=== PATIENT | female | born 1990 | race Two or more races ===

== ENCOUNTER 2022-02-16 20:00 | Inpatient (IN) | payer BC ==
[2022-02-16 21:11] VITALS: BMI 31.1
[2022-02-16 22:06] LABS: BASO % 0.6 % (0-2.0); EOS % 0.8 % (0-4.5); HEMATOCRIT 33.7 % (32.4-45.2); HEMOGLOBIN 11.7 GM/dL (10.7-15.3); LYMPH % 25.7 % (8-40); MCH 35.2 pg (25.7-33.7); MCHC 34.8 g/dl (32.0-36.0); MEAN CELL VOLUME 101.1 fl (80-96); MEAN PLT VOLUME 11.4 fl (7.5-11.1); MONO % 13.9 % (3.8-10.2); PLATELET COUNT 148 10^3/uL (134-434); RBC 3.33 M/mm3 (3.60-5.2); RDW 13.5 % (11.6-15.6); WHITE BLOOD COUNT 6.7 K/mm3 (4.0-10.0)
[2022-02-16 22:07] LABS: BLOOD UREA NITROGEN 8.5 mg/dL (7-18); CALCIUM 8.6 mg/dL (8.5-10.1)
[2022-02-16 22:10] LABS: CREATININE 0.5 mg/dL (0.55-1.3)
[2022-02-16 22:13] LABS: INR 0.96 (0.83-1.09)
[2022-02-16 23:01] LABS: HIV INTERPRETATION NEGATIVE (NEGATIVE)
[2022-02-17] MEDS ORDERED: ELECTROLYTE-148 SOLN 500 ML IV ONE ×2 (00:20→01:20)
[2022-02-17] MEDS ORDERED: ELECTROLYTE-148 SOLN 1,000 ML IV SCH (03:40)
[2022-02-17] MEDS ORDERED: CITRIC ACID/SODIUM CITRATE 30 ML UNIT-DOSE CUP PO ONE (06:00)
[2022-02-17] MEDS ORDERED: morphine SULFATE/PF 1 MG/2 ML (2cc Syringe - QUVA) ONE (10:45)
[2022-02-17] MEDS ORDERED: KETAMINE HCL 500 MG/10 ML VIAL ONE (11:25)
[2022-02-17] MEDS ORDERED: oxyCODONE HCL 5 MG TABLET PO PRN ×2 (12:42→13:22)
[2022-02-17] MEDS ORDERED: SIMETHICONE 80 MG TAB.CHEW (FP) PO PRN (12:42)
[2022-02-17] MEDS ORDERED: SENNOSIDES/DOCUSATE COMBO (SENNA PLUS) TABLET (UD) PO PRN ×2 (12:42→13:22)
[2022-02-17] MEDS ORDERED: IBUPROFEN 600 MG TABLET (FP) PO SCH (12:45)
[2022-02-17] MEDS ORDERED: ACETAMINOPHEN 1000 MG/100 ML BAG IVPB SCH (12:45)
[2022-02-17] MEDS ORDERED: ACETAMINOPHEN 325 MG TABLET (FP) PO SCH (12:45)
[2022-02-17] MEDS ORDERED: OXYTOCIN 20 UNITS in 0.9% NS 20 UNIT/1,000 ML INFUS.BAG IV SCH (12:45)
[2022-02-17] MEDS ORDERED: IBUPROFEN 800 MG/8 ML IJ IVPB SCH (12:45)
[2022-02-17] MEDS: ONDANSETRON 4 MG/2 ML VIAL IVPUSH PRN ×2 (13:00→20:40)
[2022-02-17] MEDS ORDERED: ONDANSETRON 4 MG/2 ML VIAL IVPB PRN (13:22)
[2022-02-17] MEDS ORDERED: IBUPROFEN 600 MG TABLET (FP) PO PRN (13:22)
[2022-02-17] MEDS ORDERED: ACETAMINOPHEN 325 MG TABLET (FP) PO PRN (13:22)
[2022-02-17] MEDS ORDERED: ACETAMINOPHEN 1000 MG/100 ML BAG IVPB PRN (13:22)
[2022-02-17] MEDS ORDERED: IBUPROFEN 800 MG/8 ML IJ IVPB PRN (13:22)
[2022-02-17] MEDS: OXYTOCIN 20 UNITS in 0.9% NS 20 UNIT/1,000 ML INFUS.BAG IV SCH ×2 (13:30→22:03)
[2022-02-17] MEDS ORDERED: ONDANSETRON 4 MG/2 ML VIAL IVPB ONE (15:30)
[2022-02-17] MEDS ORDERED: CEFAZOLIN 1 GM/D5W 50 ML IVPB SCH (18:00)
[2022-02-17] MEDS: CEFAZOLIN 2 GM in DEXTROSE 5%-WATER 100 ML IVPB SCH (18:48)
[2022-02-18] MEDS: CEFAZOLIN 2 GM in DEXTROSE 5%-WATER 100 ML IVPB SCH ×2 (01:01→10:17)
[2022-02-18 07:26] LABS: BASO % 0.4 % (0-2.0); EOS % 0.2 % (0-4.5); HEMATOCRIT 35.1 % (32.4-45.2); HEMOGLOBIN 12.2 GM/dL (10.7-15.3); LYMPH % 11.6 % (8-40); MCH 35.4 pg (25.7-33.7); MCHC 34.7 g/dl (32.0-36.0); MEAN CELL VOLUME 102.1 fl (80-96); MEAN PLT VOLUME 11.3 fl (7.5-11.1); MONO % 9.7 % (3.8-10.2); NEUT % 78.1 % (42.8-82.8); PLATELET COUNT 156 10^3/uL (134-434); RBC 3.44 M/mm3 (3.60-5.2); RDW 13.6 % (11.6-15.6); WHITE BLOOD COUNT 10.5 K/mm3 (4.0-10.0)
[2022-02-18] MEDS ORDERED: SODIUM CHLORIDE 500 ML IV STA (09:33)
[2022-02-18] MEDS ORDERED: BISACODYL 10 MG SUPP.RECT RC PRN ×2 (12:43→13:22)
[2022-02-18] MEDS ORDERED: ACETAMINOPHEN 325 MG TABLET (FP) PO SCH (13:15)
[2022-02-18] MEDS ORDERED: IBUPROFEN 600 MG TABLET (FP) PO SCH (13:15)
[2022-02-18] MEDS ORDERED: ACETAMINOPHEN 325 MG TABLET (FP) PO PRN (13:51)
[2022-02-18] MEDS ORDERED: oxyCODONE HCL 5 MG TABLET PO PRN (13:51)
[2022-02-18] MEDS: IBUPROFEN 600 MG TABLET (FP) PO PRN ×2 (17:26→21:39)
[2022-02-18] MEDS: SIMETHICONE 80 MG TAB.CHEW (FP) PO PRN ×2 (17:27→21:38)
[2022-02-19] MEDS: IBUPROFEN 600 MG TABLET (FP) PO PRN ×2 (14:51→22:23)
[2022-02-19] MEDS: SIMETHICONE 80 MG TAB.CHEW (FP) PO PRN ×2 (14:52→22:23)
[2022-02-20] MEDS: SIMETHICONE 80 MG TAB.CHEW (FP) PO PRN (08:55)
[2022-02-20] MEDS: IBUPROFEN 600 MG TABLET (FP) PO PRN (08:55)
[2022-02-20 10:16] VITALS: PULSE 86; TEMP 97.7
[2022-02-20 12:05] VITALS: BP 117/66
== END 2022-02-20 14:25 | disposition home or self-care (01) | DRG 540 ==
LOC: JLDR 20:00 → J3W 02-17 14:15
PROVIDERS: ADMIT Specialist; ATTEND Specialist
PROC: 10D00Z1 Extraction of Products of Conception, Low, Open Approach (ICD-10-PCS; principal; 2022-02-17)
DX: O41.03X0 Oligohydramnios, third trimester, not applicable or unspecified (principal); O32.1XX0 Maternal care for breech presentation, not applicable or unspecified; O69.81X0 Labor and delivery complicated by cord around neck, without compression, not applicable or unspecified; O34.13 Maternal care for benign tumor of corpus uteri, third trimester; D25.9 Leiomyoma of uterus, unspecified; Z3A.37 37 weeks gestation of pregnancy; Z37.0 Single live birth
CPT/HCPCS: 36415; 80048; 85025; 85610; 85730; 86780; 86850; 86900; 86901; 87389; 88307-TC; C9803-CS; U0003; U0005